=== PATIENT | female | born 1960 | race Caucasian/White ===

== ENCOUNTER 2017-06-09 07:33 | Outpatient (CLI) | payer BC | END 2017-06-09 07:34 | disposition home or self-care (01) | LOC: BICMAMMO 07:33 | PROVIDERS: ATTEND Obstetrics & Gynecology | DX: Z12.31 Encounter for screening mammogram for malignant neoplasm of breast (principal) | CPT/HCPCS: 77063; 77067; G0202 ==

== ENCOUNTER 2018-08-15 15:08 | Outpatient (CLI) | payer BC | END 2018-08-15 15:09 | disposition home or self-care (01) | LOC: BICMAMMO 15:08 | PROVIDERS: ATTEND Obstetrics & Gynecology | DX: Z12.31 Encounter for screening mammogram for malignant neoplasm of breast (principal); Z80.3 Family history of malignant neoplasm of breast | CPT/HCPCS: 77063; 77067 ==

== ENCOUNTER 2019-07-10 10:28 | Observation (INO) | payer BC ==
[2019-07-10 11:01] LABS: #Eosinphils 0.1 thou/uL (0.0-0.7); #Monocytes 0.4 thou/uL (0.11-0.59); #Neutrophils 3.4 thou/uL (1.40-6.50); %Basophils 0.5 % (0.0-1.0); %Eosinophils 2.1 % (0.0-10.0); %Lymphocytes 33.9 % (21.0-51.0); %Monocytes 6.3 % (0.0-10.0); %Neutrophils 57.3 % (42.0-75.0); Hemoglobin 13.7 g/dL (12.0-16.0); Mean Corpuscular HGB CONC 33.7 g/dL (32.0-36.0); Mean Corpuscular Hemoglobin 31.5 pg (27.0-31.0); Mean Corpuscular Volume 93.6 fL (78.0-98.0); Mean Platelet Volume 7.5 fL (7.4-10.4); Platelet Count 268 thou/uL (130-400); RBC Distribution Width 11.9 % (11.5-14.5); Red Blood Cell (RBC) Count 4.34 mill/uL (4.20-5.40)
--- NOTE | 2019-07-10 11:25 | CT ---
Exam: Head CT without contrast HISTORY: Altered mental status COMPARISON: none FINDINGS: Hemorrhage: No intraparenchymal hemorrhage or extra-axial hematoma. Brain parenchyma: Cortical pavon-white matter differentiation is preserved. No mass effect or midline shift. Basilar cisterns are patent. Ventricular system: Ventricles and sulci are patent and symmetric. Calvarium: Intact. Sinuses and mastoid air cells: Adequate aeration. IMPRESSION: No acute intracranial process.
--- NOTE | 2019-07-10 11:27 | RAD ---
Exam: Chest one view HISTORY:Altered mental status Comparison: None FINDINGS: Cardiac silhouette: Normal Aorta: Unremarkable Pulmonary vessels: Normal Costophrenic angles: Clear LUNGS: No masses or consolidation. Pneumothorax: None Osseous abnormalities: None IMPRESSION: No acute cardiopulmonary process.
[2019-07-10 11:40] LABS: ALT (SGPT) 17 U/L (8-55); AST (SGOT) 18 U/L (5-34); Albumin 4.6 g/dL (3.5-5.0); Alkaline Phosphatase 96 U/L (40-110); Anion Gap 14 mmol/L (10-20); BUN (Urea Nitrogen) 9 mg/dL (9.8-20.1); Bilirubin, Total 0.5 mg/dL (0.2-1.2); CK (CPK) 77 U/L (29-168); Calc. Creatinine Clearance 0 mL/min (70-130); Calcium 9.9 mg/dL (7.8-10.44); Carbon Dioxide 26 mmol/L (22-29); Chloride 103 mmol/L (98-107); Estimated GFR-MDRD 68; Globulin 2.9 g/dL (2.4-3.5); Glucose 94 mg/dL (70-105); Lipase 42 U/L (8-78); Potassium 3.7 mmol/L (3.5-5.1); Protein, Total 7.5 g/dL (6.0-8.3); Sodium 139 mmol/L (136-145)
[2019-07-10] MEDS ORDERED: Aspirin Chewable 81 MG TAB ONE (12:01)
[2019-07-10] MEDS ORDERED: Ondansetron PF 4 MG/2 ML Vial IVP PRN ×2 (14:25→14:31)
[2019-07-10] MEDS ORDERED: Ondansetron ODT 4 MG TAB SL PRN (14:25)
[2019-07-10] MEDS ORDERED: hydrALAZINE 20 MG/ML VIAL SLOW IVP PRN (14:31)
[2019-07-10] MEDS ORDERED: Ondansetron ODT 4 MG TAB PO PRN (14:31)
[2019-07-10] MEDS ORDERED: Acetaminophen 500 MG TAB PO PRN (14:31)
[2019-07-10 14:39] VITALS: BMI 31.4
--- NOTE | 2019-07-10 15:32 | HP ---
PRIMARY CARE PROVIDER: Fanny Bill. CHIEF COMPLAINT: Visual disturbance and difficulty speaking. 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 The patient states she was at her job doing a regular job duties when the symptoms began. The patient states she had associated difficulty of word finding and felt like she was moving in slow motion. The patient denied any recent head trauma injury, fever, chills, nasal congestion. The patient states she had a similar episode approximately 5 years prior to this evaluation and was told she had a TIA. The patient states she was on no specific medication regimen after that episode 5 years previous. 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 The patient does admit to recent dental procedure including crown within the last 2 weeks. The patient also states she was recently placed on trazodone to assist with insomnia in the last 1 to 2 weeks. The patient denied any other exposure history or travel, family members with similar symptoms, persistent headache, or recent visual changes. The patient does admit to increased stress with her work duties as well as poor sleep habits necessitating the prescription for trazodone. The patient denies any strong family history of CVA or coronary artery disease. In the emergency room, the patient underwent general evaluation including CT imaging of the brain showing no acute process. Metabolic screening was unremarkable and the patient received aspirin 324 mg in addition to intravenous normal saline x500 mL. PAST MEDICAL HISTORY: 1. Gastric sleeve. 2. Insomnia, treated with trazodone. 3. History of questionable TIA versus complex migraine. PAST SURGICAL HISTORY: 1. Status post gastric sleeve. 2. Status post bilateral tubal ligation. CURRENT MEDICATIONS: 1. Trazodone at bedtime. 2. [id number] allergy preparation. 3. [id number] H2 magui for heartburn. ALLERGIES: NO KNOWN DRUG ALLERGIES. FAMILY HISTORY: Father with history of cancer. Positive history of lymphoma. SOCIAL HISTORY: The patient is , accompanied by her in the emergency room. Resides in the [facility] area. Works at [employer] in [employer] of [employer]. Social alcohol use. No tobacco or illicit drug use. Functional of all activities of daily living. REVIEW OF SYSTEMS: CONSTITUTIONAL: Negative for weight loss or gain, ability to conduct usual activities. SKIN: Negative for rash, itching. EYES: Negative for double vision, pain. ENT/MOUTH: Negative for nose bleeding, neck stiffness, pain, tenderness. CARDIOVASCULAR: Negative for palpitations, dyspnea on exertion, orthopnea. RESPIRATORY: Negative for shortness of breath, wheezing, cough, hemoptysis, fever or night sweats. GASTROINTESTINAL: Negative for poor appetite, abdominal pain, heartburn, nausea, vomiting, constipation, or diarrhea. GENITOURINARY: Negative for urgency, frequency, dysuria, nocturia. MUSCULOSKELETAL: Negative for pain, swelling. NEUROLOGIC/PSYCHIATRIC: Negative for anxiety, depression. ALLERGY/IMMUNOLOGIC: Negative for skin rash, bleeding tendency. Otherwise, negative except as stated per HPI. PHYSICAL EXAMINATION: VITAL SIGNS: On admission, blood pressure 173/83, pulse 72, respiratory rate 20, temperature 98 degrees Fahrenheit, and O2 saturation is 100% on room air. GENERAL APPEARANCE: This is a 59-year-old female, alert and oriented x3, pleasant, conversant, smiling, in no acute distress. HEENT: Pupils are equal, round, and reactive to light and accommodation. Extraocular muscles are intact. No scleral icterus. No conjunctival injection. Nares patent. OP is clear. Teeth in good repair. NECK: Supple. No cervical adenopathy. No thyromegaly. No carotid bruits. No JVD appreciated. Cervical spine with full active and passive range of motion. No meningeal signs noted. CHEST: Lungs are clear to auscultation bilaterally. CARDIOVASCULAR: S1 and S2 without noted murmur, rub, or gallop. ABDOMEN: Rounded, soft, nontender, and nondistended. Bowel sounds are positive in all 4 quadrants. There is no hepatosplenomegaly. No abdominal bruits. No rebound or guarding appreciated. EXTREMITIES: Warm and dry with good turgor. No clubbing, cyanosis, or asymmetric edema appreciated. Pulses palpable distally at the dorsalis pedis, posterior tibial, and popliteal arteries bilaterally. Capillary refill less than 2 seconds. NEUROLOGIC: Cranial nerves II through XII are grossly intact. No focal or lateralizing signs appreciated. PERTINENT LABORATORY AND X-RAY FINDINGS: Complete metabolic profile within normal limits. BNP 60. TSH 2.14. CBC within normal limits. CT of the brain without contrast dated 07/10/2019, showed no acute intracranial process. EKG dated 07/10/2019 by my interpretation shows sinus mechanism with heart rates in the 60s. Normal R-wave progression noted in the precordial leads. Normal axis. No acute ST-T wave changes appreciated. ASSESSMENT AND PLAN: 1. Transient ischemic attack. The patient will be observed on the Stroke Unit. Questionable transient ischemic attack presentation versus potential complex migraine. We will obtain MRI of the brain to rule out subtle evidence for cerebrovascular accident. Check carotid Doppler study to rule out focal stenosis. Check fasting lipid profile in the a.m. Continue aspirin 81 mg daily. 2. Visual disturbance. Exact etiology unclear. Potential for complex migraine or ophthalmic migraine. See transient ischemic attack above. Continue to monitor clinical course. 3. Insomnia. Continue to monitor clinically. Trazodone at bedtime. 4. Prophylaxis. SCDs while in bed. Pepcid 20 mg p.o. b.i.d. 5. Code status is full. Surrogate medical decision maker is the patient's spouse. Job ID: [id number]
--- NOTE | 2019-07-10 16:14 | ULT ---
CAROTID ARTERIAL DOPPLER ULTRASOUND: Date: 07-10-2019 COMPARISON: None HISTORY: Transient ischemic attack TECHNIQUE: Multiplanar grayscale sonographic imaging of the arterial structures of the neck obtained with color flow and spectral analysis FINDINGS: Antegrade blood flow and normal arterial waveforms are documented within the carotid and the vertebra l system bilaterally. Vessel PSV (cm/sec) Right CCA 98 Right ICA 81 Right ECA 94 Left CCA 85 Left ICA 87 Left ECA 75 IC/CC ratio 0.8 on the right and 1.0 on the left. IMPRESSION: No hemodynamically significant stenosis on the basis of sonographic velocity criteria. Transcribed Date/Time: 07/10/2019 6:59 PM
--- NOTE | 2019-07-10 17:02 | MRI ---
Exam: Brain MRI with and without contrast HISTORY: Confusion this morning. New onset transient ischemic attack. COMPARISON: None FINDINGS: Gradient echo sequence: No hemorrhage Calvarium: Appropriate T1 marrow signal intensity Midline brain parenchyma: Unremarkable Cerebrum:No parenchymal mass, mass effect or midline shift. Brain volume is age-appropriate. Cortical pavon-white white matter differentiation is preserved. No significant T2 or FLAIR white matter hyperintensities. Ventricles: No evidence of hydrocephalus. Sinuses and mastoid air cells: Adequate aeration Diffusion: Central arterial flow is maintained. Absent restricted diffusion. Postcontrast images: No pathologic enhancement of the brain parenchyma. IMPRESSION: 1. Absent restricted diffusion. No acute infarct 2. No pathologic enhancement the brain parenchyma.
[2019-07-10] MEDS: Famotidine 20 MG TAB PO SCH (21:04)
[2019-07-10] MEDS ORDERED: traZODone HCl 50 MG TAB PO SCH (23:15)
[2019-07-11 05:24] LABS: Cardiac Risk 2.5 (Less than 4.5)
[2019-07-11 07:43] VITALS: BP 120/66; TEMP 99
--- NOTE | 2019-07-11 08:01 | PDOC.HOSPP ---
- Subjective Encounter Date: 07/11/19 Encounter Time: 09:40 Subjective: Patient without any further visual symptoms. No confusion. No other neuro signs. No events overnight. Symptoms lasted about 2 hours total. MRI normal. - Objective Vital Signs & Weight: Vital Signs (12 hours) Temp Pulse Resp BP Pulse Ox 07/11/19 07:37 99.0 F 59 L 12 120/66 99 07/11/19 04:00 98.4 F 60 18 103/67 98 07/11/19 00:00 98.8 F 60 18 113/57 L 97 07/10/19 20:00 98.7 F 80 18 107/51 L 99 Weight Weight 166 lb 9 oz I&O: 07/10/19 07/11/19 07/12/19 06:59 06:59 06:59 Intake Total 420 Balance 420 Result Diagrams: 07/10/19 10:47 07/10/19 10:47 Hospitalist ROS - Review of Systems Constitutional: denies: fever, chills Respiratory: denies: cough, shortness of breath Cardiovascular: denies: chest pain, palpitations, orthopnea Gastrointestinal: denies: nausea, vomiting, abdominal pain Genitourinary: denies: dysuria, hematuria Neurological: denies: weakness, numbness, change in speech, confusion, seizures - Medication Medications: Active Medications Generic Name Dose Route Start Last Admin Trade Name Freq PRN Reason Stop Dose Admin Famotidine 20 mg 07/10/19 21:00 07/10/19 21:04 Pepcid PO 20 mg BID HEATHER Administration - Exam General Appearance: NAD, awake alert Eye: anicteric sclera ENT: moist mucosa Heart: RRR, no murmur, no gallops, no rubs Respiratory: CTAB, no wheezes, no rales, no ronchi Gastrointestinal: soft, non-tender, non-distended, normal bowel sounds Neurological: cranial nerve grossly intact, no focal deficits Musculoskeletal: normal tone, normal strength Psychiatric: normal affect, normal behavior, A&O x 3 Hosp A/P (1) Visual disturbance Code(s): H53.9 - UNSPECIFIED VISUAL DISTURBANCE Status: Resolved - Plan MRI and carotid dopplers normal Telemetry monitoring showing Patient likely experienced TIA vs. complicated migraine. Will start on daily low dose Aspirin. Lipid profile WNL D/C home today F/u Neurology as outpatient.
[2019-07-11] MEDS: Famotidine 20 MG TAB PO SCH (09:00)
--- NOTE | 2019-07-11 17:16 | DIS ---
DATE OF ADMISSION: 07/10/2019 DATE OF DISCHARGE: 07/11/2019 PRIMARY CARE PHYSICIAN: Barrera Mendoza MD REASON FOR ADMISSION: Possible TIA. DIAGNOSES AT DISCHARGE: TIA versus complex migraine. PROCEDURES: 1. CT of the brain without contrast showing no acute intracranial process. 2. MRI of the brain with and without contrast showing no acute infarction. No pathological enhancement of the brain parenchyma. 3. Carotid Doppler ultrasound showing no hemodynamically significant stenosis. CONSULTATIONS: None. SUMMARY OF HOSPITAL COURSE: This is a 59-year-old white female, who presented to the emergency room with visual disturbance of the right eye including light flashes and blurriness. It started while she was doing her job. She also had some little bit difficulty word finding. She was moving in slow motion. The patient states that she had similar symptoms about five years ago. This episode resolved after about 2 hours. She had no more symptoms while she was in the hospital. She was given an aspirin in the emergency room. She had negative CT, negative MRI, and negative carotid Dopplers. The patient had normal neurologic exam on the next hospital day. Her lipid profile was within normal limits and so she was being discharged with just prophylactic aspirin and follow up with Neurology as an outpatient. DISCHARGE MANAGEMENT: Discharged home. ACTIVITY: As tolerated. DIET: Regular diet. FOLLOWUP: Follow up with Dr. Mendoza in the next week and with Dr. Whipple sometime in the next month. DISCHARGE MEDICATIONS: 1. Aspirin 81 mg daily, 30 tablets dispensed. 2. Continue trazodone 50 mg at night. Job ID: [id number]
[2019-07-11] MEDS ORDERED: traZODone HCl 50 MG TAB PO SCH (21:00)
--- NOTE | 2019-07-15 15:32 | EKG ---
Test Reason : WEAKNESS Blood Pressure : / mmHG Vent. Rate : 060 BPM Atrial Rate : 060 BPM P-R Int : 170 ms QRS Dur : 080 ms QT Int : 418 ms P-R-T Axes : 009 024 010 degrees QTc Int : 418 ms Normal sinus rhythm Possible Inferior infarct , age undetermined Abnormal ECG Confirmed by EVA GONZALEZ, BENJAMIN ([id number]), acquisitions editor LINDA BLAKE ([id number]) on 07/15/2019 3:31:58 PM Referred By: Confirmed By:BENJAMIN VELASQUEZ MD
== END 2019-07-11 10:46 | disposition home or self-care (01) ==
LOC: ERS 10:28 → 2SE 11:57
PROVIDERS: ADMIT Family Medicine; ATTEND Family Medicine
DX: H53.8 Other visual disturbances (principal); R47.9 Unspecified speech disturbances; G47.00 Insomnia, unspecified; Z79.899 Other long term (current) drug therapy
CPT/HCPCS: 36415; 70450; 70553; 71045; 80053; 80061; 82550; 83690; 83880; 84443; 84484; 85025; 93005; 93880; G0378

== ENCOUNTER 2020-03-07 14:30 | Outpatient (CLI) | payer BC ==
--- NOTE | 2020-03-07 16:47 | MMO ---
Bilateral MAMMO Bilat Screen [facility]. CLINICAL HISTORY: Patient is 59 years old and is seen for screening. The patient has no family history of breast cancer. The patient has no personal history of cancer. VIEWS: The views performed were: bilateral craniocaudal with tomosynthesis and bilateral mediolateral oblique with tomosynthesis. FILMS COMPARED: The present examination has been compared to prior imaging studies performed at [facility] on 10/26/2014, 04/29/2016, 06/09/2017 and 08/15/2018. This study has been interpreted with the assistance of computer-aided detection. MAMMOGRAM FINDINGS: There are scattered fibroglandular densities. There are no suspicious masses, suspicious calcifications, or new areas of architectural distortion. IMPRESSION: THERE IS NO MAMMOGRAPHIC EVIDENCE OF MALIGNANCY. A ROUTINE FOLLOW-UP MAMMOGRAM IN 1 YEAR IS RECOMMENDED. THE RESULTS OF THIS EXAM WERE SENT TO THE PATIENT. ACR BI-RADS Category 1 - Negative MAMMOGRAPHY NOTE: 1. A negative mammogram report should not delay a biopsy if a dominant of clinically suspicious mass is present. 2. Approximately 10% to 15% of breast cancers are not detected by mammography. 3. Adenosis and dense breasts may obscure an underlying neoplasm. Reported by: EDGAR BOLAND MD Electonically Signed: [id number]
== END 2020-03-07 14:31 | disposition home or self-care (01) ==
LOC: BICMAMMO 14:30
PROVIDERS: ATTEND Obstetrics & Gynecology
DX: Z12.31 Encounter for screening mammogram for malignant neoplasm of breast (principal)
CPT/HCPCS: 77063; 77067